=== PATIENT | female | born 2000 | race Caucasian/White ===

== ENCOUNTER → 2019-11-16 | Outpatient (CLI) | payer SELFPAY ==
[2019-11-16 21:14] LABS: CHLAM PCR NOT DETECTED (NOT DETECT)
== END ==
LOC: LAB 19:35
PROVIDERS: ATTEND Nurse Practitioner Family
DX: R30.0 Dysuria (principal); R82.71 Bacteriuria
CPT/HCPCS: 87086; 87088; 87186; 87491; 87591